=== PATIENT | female | born 1955 | race Caucasian/White ===

== ENCOUNTER 2018-06-10 18:59 | Emergency (ER) | payer SELFPAY ==
[~2018-06-10] VITALS: Ht 157.5 cm; Wt 74.8 kg
[~2018-06-10 18:59] MED LIST: ATENOLOL25 MG; ATIVAN1 MG; FLUOXETINE20 M3 PO; HYDROCHLOROTH12.5 M2; LEVOTHYROXIN0.025 M2; NORCO1 TA2; OMEPRAZOLE40 M1 PO; PROAIR HFA0.09 MG/A1; TRAMADOL HCL50 MG; TRAZODONE50 M1
[2018-06-10 19:09] VITALS: Ht 157.5 cm; Wt 74.8 kg
[2018-06-10 20:02] LABS: BASOPHIL % 0.2 % (0-2); PLATELET COUNT 263 x10^3mcL (130-400)
[2018-06-10 20:25] LABS: ALBUMIN 4.5 g/dL (3.4-5.0); BILIRUBIN TOTAL 0.73 mg/dL (0.20-1.00); CALCIUM 9.4 mg/dL (8.5-10.1); CARBON DIOXIDE 24.1 mmol/L (21-32); CHOLESTEROL/HDL RATIO 2.6
[2018-06-10 20:30] LABS: POTASSIUM SERUM 2.5 mmol/L (3.5-5.1); TOTAL PROTEIN, SERUM 8.6 g/dL (6.4-8.2)
[2018-06-10 20:36] LABS: T3 TOTAL 1.05 ng/mL
[2018-06-10 20:58] LABS: FREE T4 1.16 ng/dL (0.76-1.46); FREE THYROXINE INDEX 3.3 ug/dL (1.4-4.5); T4(THYROXINE) 9.2 ug/dL (4.7-13.3)
[2018-06-10 22:21] LABS: microscopic required? YES; urine erythrocyte NEGATIVE (NEGATIVE)
[2018-06-10 22:30] LABS: AMPHETAMINE QUAL UR NONE DETECTED (See below)
[2018-06-10] MEDS ORDERED: ATORVASTATIN CA40 M1 PO (23:11)
[2018-06-10] MEDS ORDERED: VITAMIN B121000 MCG PO (23:12)
[2018-06-10] MEDS ORDERED: D-20001 TAB PO (23:13)
[2018-06-10] MEDS ORDERED: ASPIR 8181 MG PO (23:14)
[2018-06-10] MEDS ORDERED: NEU300 PO (23:15)
[2018-06-11 01:00] VITALS: BP 165/93
== END 2018-06-11 01:00 | disposition short-term general hospital (02) ==
LOC: ED 18:59
PROVIDERS: Specialist
DX: S42.351A Displaced comminuted fracture of shaft of humerus, right arm, initial encounter for closed fracture (principal); S06.5X0A Traumatic subdural hemorrhage without loss of consciousness, initial encounter; S00.512A Abrasion of oral cavity, initial encounter; E87.6 Hypokalemia; G89.29 Other chronic pain; N39.0 Urinary tract infection, site not specified; J45.909 Unspecified asthma, uncomplicated; Z86.73 Personal history of transient ischemic attack (TIA), and cerebral infarction without residual deficits; Z88.6 Allergy status to analgesic agent; X58.XXXA Exposure to other specified factors, initial encounter; Y93.9 Activity, unspecified; Y92.89 Other specified places as the place of occurrence of the external cause; Y99.8 Other external cause status
CPT/HCPCS: 83880; 84439; 87804; G0480; J0696; J2060; J3010; J7030; Q0092

== ENCOUNTER 2020-03-26 21:33 | Inpatient (IN) | payer OTHER ==
[~2020-03-26] VITALS: Ht 154.9 cm; Wt 74.8 kg
[2020-03-26 21:33] VITALS: Ht 154.9 cm; Wt 74.8 kg
[~2020-03-26 21:33] MED LIST changes: +ASPIR 8181 MG PO; +ATORVASTATIN CA40 M1 PO; +D-20001 TAB PO; +NEU300 PO; +VITAMIN B121000 MCG PO
[2020-03-26 23:42] LABS: BASOPHIL % 0.6 % (0.2-1.3); PLATELET COUNT 271 x10^3mcL (179-408)
[2020-03-26 23:43] LABS: ALKALINE PHOSPHATASE 204 U/L (46-116); ALT/SGPT 105 U/L (14-59); AST/SGOT 169 U/L (15-37); BILIRUBIN TOTAL 0.68 mg/dL (0.20-1.00); CALCIUM 8.8 mg/dL (8.5-10.1); CARBON DIOXIDE 26.4 mmol/L (21-32); CHLORIDE SERUM 104 mmol/L (98-107); CREATININE SERUM 0.7 mg/dL (0.6-1.0); GFR1 > 60 mL/min; GLUCOSE SERUM 109 mg/dL (74-106); POTASSIUM SERUM 3.7 mmol/L (3.5-5.1); RED CELL DISTRIBUTION WIDTH 21.3 % (12.3-17.7); SODIUM SERUM 141 mmol/L (136-145); TOTAL PROTEIN, SERUM 7.4 g/dL (6.4-8.2)
[2020-03-26 23:46] LABS: ALBUMIN 3.1 g/dL (3.4-5.0)
[2020-03-26 23:58] LABS: ovalocyte/elliptocyte 1+; rbc morphology (normal/abnorm) ABNORMAL (NORMAL); tear drop cell (dacryocyte) 1+
[2020-03-27 05:25] VITALS: BP 135/86
[2020-03-27 07:55] LABS: CALCIUM 8.5 mg/dL (8.5-10.1); CARBON DIOXIDE 26.3 mmol/L (21-32); CHLORIDE SERUM 106 mmol/L (98-107); CREATININE SERUM 0.6 mg/dL (0.6-1.0); GFR1 > 60 mL/min; GLUCOSE SERUM 123 mg/dL (74-106); POTASSIUM SERUM 3.7 mmol/L (3.5-5.1); SODIUM SERUM 142 mmol/L (136-145)
[2020-03-27 08:24] LABS: BASOPHIL % 0.4 % (0.2-1.3); PLATELET COUNT 234 x10^3mcL (179-408)
[2020-03-27 08:26] VITALS: BP 113/64
[2020-03-27 09:10] LABS: RED CELL DISTRIBUTION WIDTH 21.3 % (12.3-17.7)
[2020-03-27 12:33] VITALS: BP 129/68
[2020-03-27 16:56] VITALS: BP 117/67
[2020-03-27 20:49] VITALS: BP 118/66
[2020-03-28 04:04] VITALS: BP 108/65
[2020-03-28 07:45] LABS: BASOPHIL % 0.6 % (0.2-1.3); PLATELET COUNT 214 x10^3mcL (179-408)
[2020-03-28 07:47] LABS: RED CELL DISTRIBUTION WIDTH 21.4 % (12.3-17.7)
[2020-03-28 08:00] LABS: CALCIUM 7.9 mg/dL (8.5-10.1); CARBON DIOXIDE 25.5 mmol/L (21-32); CHLORIDE SERUM 104 mmol/L (98-107); CREATININE SERUM 0.6 mg/dL (0.6-1.0); GFR1 > 60 mL/min; GLUCOSE SERUM 92 mg/dL (74-106); POTASSIUM SERUM 3.2 mmol/L (3.5-5.1); SODIUM SERUM 140 mmol/L (136-145)
[2020-03-28 08:58] VITALS: BP 123/67
[2020-03-28 12:55] VITALS: BP 119/64
[2020-03-28 16:57] VITALS: BP 118/70
[2020-03-28 19:53] VITALS: BP 103/49
[2020-03-29 04:33] VITALS: BP 114/44
[2020-03-29 07:31] LABS: BASOPHIL % 0.8 % (0.2-1.3); PLATELET COUNT 212 x10^3mcL (179-408)
[2020-03-29 08:30] LABS: RED CELL DISTRIBUTION WIDTH 20.9 % (12.3-17.7)
[2020-03-29 08:33] LABS: ALKALINE PHOSPHATASE 188 U/L (46-116); ALT/SGPT 76 U/L (14-59); AST/SGOT 104 U/L (15-37); BILIRUBIN TOTAL 0.49 mg/dL (0.20-1.00); CALCIUM 8.7 mg/dL (8.5-10.1); CARBON DIOXIDE 27.1 mmol/L (21-32); CHLORIDE SERUM 102 mmol/L (98-107); CREATININE SERUM 0.7 mg/dL (0.6-1.0); GFR1 > 60 mL/min; GLUCOSE SERUM 121 mg/dL (74-106); POTASSIUM SERUM 3.2 mmol/L (3.5-5.1); SODIUM SERUM 139 mmol/L (136-145); TOTAL PROTEIN, SERUM 6.6 g/dL (6.4-8.2)
[2020-03-29 08:36] LABS: ALBUMIN 2.6 g/dL (3.4-5.0)
[2020-03-29 08:38] VITALS: BP 104/60
[2020-03-29 12:22] VITALS: BP 115/68
[2020-03-29 17:42] VITALS: BP 109/61
[2020-03-29 22:00] VITALS: BP 117/60
[2020-03-30 05:49] VITALS: BP 118/65
[2020-03-30 06:36] LABS: BASOPHIL % 0.9 % (0.2-1.3); PLATELET COUNT 217 x10^3mcL (179-408)
[2020-03-30 07:28] LABS: RED CELL DISTRIBUTION WIDTH 21.5 % (12.3-17.7)
[2020-03-30 07:31] LABS: rbc morphology (normal/abnorm) NORMAL (NORMAL)
[2020-03-30 07:35] LABS: ALKALINE PHOSPHATASE 183 U/L (46-116); ALT/SGPT 73 U/L (14-59); AST/SGOT 99 U/L (15-37); BILIRUBIN TOTAL 0.56 mg/dL (0.20-1.00); CALCIUM 8.8 mg/dL (8.5-10.1); CHLORIDE SERUM 103 mmol/L (98-107); CREATININE SERUM 0.6 mg/dL (0.6-1.0); GFR1 > 60 mL/min; GLUCOSE SERUM 92 mg/dL (74-106); POTASSIUM SERUM 3.6 mmol/L (3.5-5.1); SODIUM SERUM 141 mmol/L (136-145); TOTAL PROTEIN, SERUM 6.2 g/dL (6.4-8.2)
[2020-03-30 07:46] LABS: ALBUMIN 2.7 g/dL (3.4-5.0)
[2020-03-30 08:34] VITALS: BP 113/61
[2020-03-30 16:12] VITALS: BP 106/52
[2020-03-30 20:52] VITALS: BP 109/65
[2020-03-31 06:03] VITALS: BP 118/64
[2020-03-31 07:52] LABS: BASOPHIL % 0.3 % (0.2-1.3); PLATELET COUNT 232 x10^3mcL (179-408)
[2020-03-31 08:16] VITALS: BP 130/82
[2020-03-31 08:31] LABS: ALKALINE PHOSPHATASE 180 U/L (46-116); ALT/SGPT 63 U/L (14-59); AST/SGOT 98 U/L (15-37); BILIRUBIN TOTAL 0.5 mg/dL (0.20-1.00); CARBON DIOXIDE 28.2 mmol/L (21-32); CHLORIDE SERUM 101 mmol/L (98-107); CREATININE SERUM 0.6 mg/dL (0.6-1.0); GFR1 > 60 mL/min; GLUCOSE SERUM 115 mg/dL (74-106); POTASSIUM SERUM 3.8 mmol/L (3.5-5.1); SODIUM SERUM 137 mmol/L (136-145); TOTAL PROTEIN, SERUM 6.7 g/dL (6.4-8.2)
[2020-03-31 08:31] LABS: RED CELL DISTRIBUTION WIDTH 21.2 % (12.3-17.7)
[2020-03-31 08:54] LABS: ALBUMIN 2.6 g/dL (3.4-5.0)
[2020-03-31 11:22] LABS: rbc morphology (normal/abnorm) NORMAL (NORMAL)
[2020-03-31 11:42] VITALS: BP 120/58
[2020-03-31 16:14] VITALS: BP 113/81
[2020-03-31 22:21] VITALS: BP 130/68
[2020-04-01 06:55] VITALS: BP 122/62
[2020-04-01 09:06] VITALS: BP 126/42
[2020-04-01 09:43] LABS: ALKALINE PHOSPHATASE 192 U/L (46-116); ALT/SGPT 60 U/L (14-59); AST/SGOT 95 U/L (15-37); BILIRUBIN TOTAL 0.75 mg/dL (0.20-1.00); CALCIUM 8.7 mg/dL (8.5-10.1); CARBON DIOXIDE 26.8 mmol/L (21-32); CHLORIDE SERUM 102 mmol/L (98-107); CREATININE SERUM 0.7 mg/dL (0.6-1.0); GFR1 > 60 mL/min; GLUCOSE SERUM 105 mg/dL (74-106); SODIUM SERUM 136 mmol/L (136-145); TOTAL PROTEIN, SERUM 7.4 g/dL (6.4-8.2)
[2020-04-01 09:44] LABS: ALBUMIN 2.8 g/dL (3.4-5.0)
[2020-04-01 11:25] LABS: BASOPHIL % 0.6 % (0.2-1.3); PLATELET COUNT 311 x10^3mcL (179-408)
[2020-04-01 11:28] LABS: RED CELL DISTRIBUTION WIDTH 21.7 % (12.3-17.7)
[2020-04-01 12:21] VITALS: BP 102/47
[2020-04-01 17:24] VITALS: BP 134/62
[2020-04-01 19:30] VITALS: BP 132/64
[2020-04-02 00:30] VITALS: BP 134/68
[2020-04-02 07:29] LABS: ALKALINE PHOSPHATASE 190 U/L (46-116); ALT/SGPT 56 U/L (14-59); AST/SGOT 85 U/L (15-37); BILIRUBIN TOTAL 0.73 mg/dL (0.20-1.00); CALCIUM 8.7 mg/dL (8.5-10.1); CARBON DIOXIDE 26.7 mmol/L (21-32); CHLORIDE SERUM 103 mmol/L (98-107); CREATININE SERUM 0.7 mg/dL (0.6-1.0); GFR1 > 60 mL/min; GLUCOSE SERUM 102 mg/dL (74-106); POTASSIUM SERUM 3.7 mmol/L (3.5-5.1); SODIUM SERUM 137 mmol/L (136-145); TOTAL PROTEIN, SERUM 7.4 g/dL (6.4-8.2)
[2020-04-02 07:36] LABS: ALBUMIN 2.7 g/dL (3.4-5.0)
[2020-04-02 08:03] VITALS: BP 123/61
[2020-04-02 12:37] VITALS: BP 121/76
[2020-04-02 13:55] VITALS: BP 121/76
[2020-04-02 16:54] VITALS: BP 117/55
== END 2020-04-02 17:51 | DRG 308 ==
LOC: ED 21:33 → MU 23:43
PROVIDERS: Internal Medicine; Orthopaedic Surgery; Specialist; ADMIT Hospitalist; ATTEND Hospitalist
PROC: 0QS604Z Reposition Right Upper Femur with Internal Fixation Device, Open Approach (ICD-10-PCS; principal; 2020-03-30 09:00)
DX: S72.111A Displaced fracture of greater trochanter of right femur, initial encounter for closed fracture (principal); M48.56XA Collapsed vertebra, not elsewhere classified, lumbar region, initial encounter for fracture; E11.9 Type 2 diabetes mellitus without complications; I10 Essential (primary) hypertension; Z20.822 Contact with and (suspected) exposure to COVID-19; Z88.5 Allergy status to narcotic agent; J45.909 Unspecified asthma, uncomplicated; F41.9 Anxiety disorder, unspecified; W18.39XA Other fall on same level, initial encounter; Y93.89 Activity, other specified; Y92.89 Other specified places as the place of occurrence of the external cause; Y99.8 Other external cause status; E03.9 Hypothyroidism, unspecified
CPT/HCPCS: 97110-GP; 97112-GP; 97116-GP; 97530-GP; G0378; J0131; J0690; J1170; J1200; J1885; J2001; J2250; J2405; J3010; J3490; J7030; U0003